=== PATIENT | female | born 1970 | race Hispanic/Latino ===

== ENCOUNTER 2018-05-29 12:20 | Emergency (ER) | payer SELFPAY ==
[~2018-05-29] VITALS: Ht 162.6 cm; Wt 61.2 kg
--- OUTSIDE RECORDS SUMMARY | 2018-05-29 12:23 | XMS REPORT | CCD ---
Author Author Auto Generated Organization [facility] Address Unknown Phone Unavailable Care Team Providers Care Viner Operator Name Role Phone Marychuy Caceres CP Allergies, Adverse Reactions, Alerts Substance Reaction Status NKDA Active Medications Medication Instructions Start Date End Date Status Keflex 500 mg oral 500 mg=1 cap, PO, Q8H, # 21 cap, 0 02/20/2013 02/27/2013 Ordered capsule Refill(s) Tdap 0.5 mL, Route: IM, Drug Form: SUSP, 02/20/2013 02/20/2013 Completed Dosing Weight 59.091, kg, ONCE, STAT, Start date: 02/20/13 4:46:00, Stop date: 02/20/13 4:46:00 Saline Flush 0.9% 5 mL, Route: IVP, Drug Form: INJ, 02/20/2013 02/20/2013 Discontinued Dosing Weight 59.091, kg, PRN, PRN Line Flush, Start date: 02/20/13 4:46:00, Duration: 30 day, Stop date: 03/22/13 4:45:00Same as: BD Posiflush Sterile ceFAZolin 1 gm, Route: IV, ONCE, Dosing 02/20/2013 02/20/2013 Completed Weight 59.091, kg, Patients weighing < 80kg, Priority: STAT, Start date: 02/20/13 4:46:00, Stop date: 02/20/13 4:46:00 Naprosyn 500 mg oral 500 mg=1 tab, PO, BID, # 20 tab, 0 02/20/2013 Ordered tablet Refill(s) Immunizations Vaccine Date Status diphtheria/pertussis, acel/tetanus adult 02/20/2013 Auth (Verified) Vital Signs Most recent to oldest [Reference Range]: 1 2 3 Height 162.56 cm (02/20/2013 04:26:00) Temperature Oral [96.4-99.1 DegF] 98.2 DegF (02/20/2013 07:39:00) 97.2 DegF (02/20/2013 04:26:00) Systolic Blood Pressure [90-140 mmHg] 106 mmHg (02/20/2013 07:39:00) 121 mmHg (02/20/2013 04:26:00) Diastolic Blood Pressure [60-90 mmHg] 73 mmHg (02/20/2013 07:39:00) 85 mmHg (02/20/2013 04:26:00) Respiratory Rate [14-20 BRMIN] 19 BRMIN (02/20/2013 07:39:00) 20 BRMIN (02/20/2013 04:37:00) 18 BRMIN (02/20/2013 04:26:00) Peripheral Pulse Rate [60-100 bpm] 102 bpm *HI* (02/20/2013 04:37:00) 92 bpm (02/20/2013 04:26:00) Weight 59.091 kg (02/20/2013 04:26:00) Results CHEMISTRY Most recent to oldest [Reference Range]: 1 Sodium Lvl [135-145 mEq/L] 142 mEq/L (02/20/2013 04:46:00) Potassium Lvl [3.5-5.1 mEq/L] 3.8 mEq/L (02/20/2013 04:46:00) Chloride Lvl [95-109 mEq/L] 107 mEq/L (02/20/2013 04:46:00) CO2 [24-32 mEq/L] 26 mEq/L (02/20/2013 04:46:00) AGAP [10.0-20.0 mEq/L] 12.8 mEq/L (02/20/2013 04:46:00) Creatinine Lvl [0.5-1.4 mg/dL] 0.6 mg/dL (02/20/2013 04:46:00) eGFR 113 mL/min/1.73m2 1 *NA* (02/20/2013 04:46:00) BUN [7-22 mg/dL] 4 mg/dL *LOW* (02/20/2013 04:46:00) Glucose Lvl [70-99 mg/dL] 98 mg/dL 2 (02/20/2013 04:46:00) Calcium Lvl [8.5-10.5 mg/dL] 8.9 mg/dL (02/20/2013 04:46:00) Etoh (%) .249 % 3 *NA* (02/20/2013 04:46:00) Ethanol Lvl 249 mg/dL 4 *NA* (02/20/2013 04:46:00) S Preg [Negative] Negative *NA* (02/20/2013 04:46:00) 1Result Comment: The eGFR is calculated using the CKD-EPI formula. In most young, healthy individuals the eGFR will be >90 mL/min/1.73m2. The eGFR declines with age. An eGFR of 60-89 may be normal in some populations, particularly the elderly, for whom the CKD-EPI formula has not been extensively validated. Use of the eGFR is not recommended in the following populations: Individuals with unstable creatinine concentrations, including patients and those with serious co-morbid conditions. Patients with extremes in muscle mass or diet. The data above are obtained from the National Kid[employer] Disease Education Program ( NKDEP) which additionally recommends that when the eGFR is used in patients with extremes of body mass index for purposes of drug dosing, the eGFR should be mul tiplied by the estimated BMI. 2Interpretive Data: Adult reference range values reflect the clinical guidelines of the [place] [employer]. 3Interpretive Data: Negative Range: <0.003% Toxic Range: >0.25% 4Interpretive Data: Negative Range: <3 mg/dL Toxic Range: >250 mg/dL HEMATOLOGY Most recent to oldest [Reference Range]: 1 WBC [3.7-10.4 K/CMM] 6.1 K/CMM (02/20/2013 04:46:00) RBC [4.20-5.40 M/CMM] 4.01 M/CMM *LOW* (02/20/2013 04:46:00) Hgb [12.0-16.0 g/dL] 12.8 g/dL (02/20/2013 04:46:00) Hct [36.0-48.0 %] 37.5 % (02/20/2013 04:46:00) MCV [81.0-99.0 fL] 93.5 fL (02/20/2013 04:46:00) MCH [27.0-31.0 pg] 31.8 pg *HI* (02/20/2013:46:00) MCHC [32.0-36.0 g/dL] 34.0 g/dL (02/20/2013:46:00) RDW [11.5-14.5 %] 14.4 % (02/20/2013:46:00) Platelet [133-450 K/CMM] 297 K/CMM (02/20/2013:46:00) MPV [7.4-10.4 fL] 7.5 fL (02/20/2013:46:00) Segs [45.0-75.0 %] 59.1 % (02/20/2013:46:00) Lymphocytes [20.0-40.0 %] 25.9 % (02/20/2013:46:00) Monocytes [2.0-12.0 %] 8.1 % (02/20/2013:46:00) Eosinophils [0.0-4.0 %] 5.9 % *HI* (02/20/2013:46:00) Basophils [0.0-1.0 %] 1.0 % (02/20/2013:46:00) Segs-Bands # [1.5-8.1 K/CMM] 3.6 K/CMM (02/20/2013 04:46:00) Lymphocytes # [1.0-5.5 K/CMM] 1.6 K/CMM (02/20/2013 04:46:00) Monocytes # [0.0-0.8 K/CMM] 0.5 K/CMM (02/20/2013 04:46:00) Eosinophils # [0.0-0.5 K/CMM] 0.4 K/CMM (02/20/2013 04:46:00) Basophils # [0.0-0.2 K/CMM] 0.1 K/CMM (02/20/2013 04:46:00)
--- NOTE | 2018-05-29 13:27 | Diagnostic Imaging Report ---
EXAMINATION: CXR 2 VIEW - HOPD INDICATION: Dizziness, palpitation. COMPARISON: None FINDINGS: TUBES and LINES: None. LUNGS: Lungs are well inflated. Lungs are clear. There is no evidence of pneumonia or pulmonary edema. PLEURA: No pleural effusion or pneumothorax. HEART AND MEDIASTINUM: The cardiomediastinal silhouette is unremarkable. BONES AND SOFT TISSUES: No acute osseous lesion. Soft tissues are unremarkable. UPPER ABDOMEN: No free air under the diaphragm. IMPRESSION: No acute radiographic abnormality. Signed by: Dr. Shirley Valderrama MD on 05/29/2018 1:23 PM
[2018-05-29 14:06] VITALS: BP 119/67
== END 2018-05-29 14:20 | disposition home or self-care (01) ==
LOC: FSED 12:20
DX: R00.2 Palpitations (principal)
CPT/HCPCS: 71046; 80053; 84484; 85025; 93005; 99283